=== PATIENT | male | born 1975 | race Caucasian/White ===

== ENCOUNTER 2018-05-11 18:19 | Outpatient (CLI) | payer OTHER ==
[~2018-05-11 18:19] MED LIST: NABUMETONE500 MG PO; PERCOCET 5/3251 TAB PO
== END 2018-05-11 19:17 | disposition home or self-care (01) ==
LOC: LAB 18:19
DX: J11.1 Influenza due to unidentified influenza virus with other respiratory manifestations (principal); J06.9 Acute upper respiratory infection, unspecified

== ENCOUNTER 2025-03-19 08:00 | Day surgery (SDC) | payer OTHER ==
[2025-03-13 09:25] VITALS: BP 116/77
[2025-03-13 10:04] LABS: URINE APPEARANCE Clear; URINE BILIRRUBIN Negative (NEGATIVE); URINE BLOOD Negative; URINE COLOR Yellow; URINE GLUCOSE Negative (NEGATIVE); URINE KETONE Negative (NEGATIVE); URINE LEUKOCYTE Negative; URINE NITRATE Negative; URINE PROTEIN Negative (NEGATIVE); URINE UROBILINOGEN 0.2 E.U./dl
[2025-03-13 10:10] LABS: URINE EPITHELIAL CELLS 7.8 uL (0.0-38.8); URINE WBC 3.3 uL (0.0-23.2)
[2025-03-13 10:14] LABS: URINE BACTERIA 3.5 uL (0.0-1933); URINE CAST 0.00 uL (0.0-1.40); URINE RBC 1.4 uL (0.0-20.8)
[2025-03-13 10:37] LABS: INR 1.04
[2025-03-13 10:39] LABS: BASO % 0.8 % (0.1-1.2); EOS # 0.12 (0.04-0.54); EOS % 2.3 % (0.7-7.0); LYMPH # 1.82 (1.18-3.74); LYMPH % 34.7 % (19.3-53.1); MEAN PLATELET VOLUME 11.90 fl (9.4-12.4); MONO # 0.42 (0.24-0.82); MONO % 8.0 % (4.7-12.5); NEUT # 2.84 (1.56-6.13); NEUT % 54.0 % (34.0-71.1); RED CELL DISTRIBUTION WIDTH 11.8 % (11.6-14.4)
[2025-03-13 10:41] LABS: ALT/SGPT 35.0 U/L (12-78); AST/SGOT 18.0 U/L (15-37); BILIRUBIN TOTAL 1.42 mg/dL (0.3-1.2); BUN CREA RATIO 18.0 (7.0-25.0); CREATININE SERUM 1.0 mg/dL (0.70-1.30); GFR 80.09; GLOBULINA 3.0 G/DL (2.4-3.5); GLUCOSE FASTING 153.0 mg/dL (65-100); OSMOLALITY SERUM 286.0 MOSM/KG (275-295)
[~2025-03-19] VITALS: Ht 182.9 cm; Wt 93.4 kg
[~2025-03-19 08:00] MED LIST changes: +LOSARTAN POTASS50 MG PO; +METFORMIN HCL750 MG PO; +TADALAFIL5 MG PO
[2025-03-19] MEDS ORDERED: SUGAMMADEX SODIUM 200 MG/2 ML VIAL IV ONE (12:30)
[2025-03-19] MEDS ORDERED: CEFAZOLIN SODIUM 1,000 MG VIAL IV ONE (12:30)
== END 2025-03-19 13:50 | disposition home or self-care (01) ==
LOC: CIR.AMB 08:00
PROVIDERS: ATTEND Surgery
DX: K80.10 Calculus of gallbladder with chronic cholecystitis without obstruction (principal)

== ENCOUNTER 2025-03-22 13:18 | Emergency (ER) | payer OTHER ==
[~2025-03-22] VITALS: Ht 182.9 cm; Wt 95.3 kg
[2025-03-22] MEDS ORDERED: MOXIFLOXACIN HCL1 GM PO (15:15)
[2025-03-22] MEDS ORDERED: PEPCID AC20 MG PO (15:15)
[2025-03-22] MEDS ORDERED: TRAM1TAB98 (15:16)
== END 2025-03-22 16:32 | disposition home or self-care (01) ==
LOC: ER 13:19
DX: K91.841 Postprocedural hemorrhage of a digestive system organ or structure following other procedure (principal); I10 Essential (primary) hypertension; E11.9 Type 2 diabetes mellitus without complications; Z79.84 Long term (current) use of oral hypoglycemic drugs